=== PATIENT | female | born 1970 | race Caucasian/White ===

== ENCOUNTER 2017-12-07 15:14 | Emergency (ER) | payer MEDICAID ==
[2017-12-07] MEDS ORDERED: DIAZEPAM 5 MG TAB PO ONE (16:28)
--- NOTE | 2017-12-07 16:29 | EDPHY ---
H & P Time Seen by Provider: 12/07/17 16:10 HPI/ROS: HPI Anxiety, rash. 47-year-old female reportedly by private vehicle. She reports states that she has a long history of anxiety. She reports that she has been out of her anxiety medications for 4-5 months. She reports that [facility] emergency department on December 06. She reports that 1 of these facilities called in a prescription for hydralazine to either [facility] and or [facility]. She has not filled this because she initially told me that she did have a car. She then stated however that she drove her boyfriend to work prior to coming here. When I questioned her on that she stated that she did have a car but got lost and wound up at the emergency department. She also complains of a rash which she has had for several days. She is concerned this may be scabies. She had this evaluated at the urgent care [facility] emergency department as well. This why she was prescribed hydralazine. She describes it as itchy. She also reports some irritation to her right eye without trauma or changes in vision. She does not wear contact lenses. ROS: Constitutional: No fever, no chills. As above. Eyes: As above. No changes in vision. ENT: No sore throat. No nasal congestion or rhinorrhea. Respiratory: No cough. No shortness of breath. Cardiac: No chest pain, no palpitations. Gastrointestinal: No abdominal pain, no vomiting, no diarrhea. Genitourinary: No hematuria. No dysuria or increased frequency with urination. Musculoskeletal: No back pain. No neck pain. No myalgias or arthralgias. Skin: As above. Neurological: No headache. No focal weakness or altered sensation. Past medical history: Anxiety, depression. Hysterectomy. Social history: Currently here by herself. States she has a boyfriend. Smoker. Denies alcohol. Denies IV drugs and street drugs. Physical Exam: General Appearance: Alert, anxious but not in distress. Dirty, disheveled. This patient is responding to questions appropriately and in full sentences. This patient appears well-hydrated and well-nourished. Eyes: Pupils equal and round and reactive to light. Right eye significant for some vague erythema and mild lid edema with some purulent crusting at the medial canthus. No foreign body on gross inspection. The cornea appears grossly normal. She does not have significant tearing or ocular pain. Left is normal on gross inspection. Neurological: Motor sensory function is grossly intact. Cranial nerves are normal. Gait is normal. Skin: Warm and dry, diffuse, urticarial erythematous blanching type rash on anterior chest, lower face and arms. No track castelan to suggest scabies. No petechiae. Looks like it has a sunburn component to it as well. Musculoskeletal: Neck is supple and nontender. Extremities are symmetrical. All joints range without pain or impingement. Psychiatric: No agitation. No depression. Database: EKG: Imaging: Procedures: Emergency department course: Triage vital signs reviewed. Because the patient is driving I will not medicate her for anxiety was sedative medications. She was given 60 mg of oral prednisone for her rash. She was started on Polytrim ophthalmic for her right eye conjunctivitis. I had our top case assembler see her, case management has arrange for follow-up with [facility] to further evaluate and treat her anxiety on a long-term basis. The patient feels comfortable going home and I feel she is safe for discharge. She understands for follow-up. I have discussed medication dosing with her. Return to emergency department precautions reviewed. All of her questions were answered. She was discharged in good condition. Note: nursing staff verified prescribed medications from visit to [facility] emergency department yesterday. Patient prescribed permethrin for possible scabies as well as erythromycin ophthalmic ointment for conjunctivitis and hydralazine. Patient given filled prescription for polytrim ophthalmic here in our emergency department. Prescriptions transferred to local pharmacy in [place] these will be filled except for the erythromycin ophthalmic ointment which is been replaced by polytrim ophthalmic as noted. Differential Diagnosis: The differential diagnosis on this patient includes but is not limited to right eye conjunctivitis, anxiety, erythematous urticarial rash. Scabies, corneal abrasions/ulceration, ocular foreign body, suicidal ideation unlikely. This represents a partial list of diagnoses considered. These considerations are based on history, physical exam, past history, reassessment and diagnostic testing. Smoking Status: Former smoker Constitutional: Initial Vital Signs Temperature (C) 36.5 C 12/07/17 15:31 Heart Rate 96 12/07/17 15:31 Respiratory Rate 24 H 12/07/17 15:31 Blood Pressure 171/98 H 12/07/17 15:31 O2 Sat (%) 99 12/07/17 15:31 O2 Delivery Mode Room Air Allergies/Adverse Reactions: No Known Allergies Allergy (Unverified 12/07/17 15:39) Home Medications: Medication Instructions Recorded predniSONE [prednisone 20mg (RX)] 60 mg PO DAILY #9 tab 12/07/17 Medical Decision Making - Data Points Medications Given: Discontinued Medications Diazepam (Valium) 10 mg PO EDNOW ONE Stop: 12/07/17 16:29 Last Admin: 12/07/17 16:51 Dose: Not Given Polymyxin/Trimethoprim Sulfate (Polytrim Opht Drops) 1 drops RTEYE Q6HRS KARIE Stop: 01/06/18 17:59 Last Admin: 12/07/17 17:00 Dose: 1 btl Prednisone (Prednisone) 60 mg PO EDNOW ONE Stop: 12/07/17 16:42 Last Admin: 12/07/17 16:56 Dose: 60 mg Departure - Departure Disposition: Home, Routine, Self-Care Clinical Impression: Anxiety, Conjunctivitis, Rash Condition: Good Instructions: Acute Rash (ED), Anxiety (ED), Conjunctivitis (ED) Additional Instructions: Read and follow provided instructions. Follow-up with your primary care physician at [facility] for re-evaluation of your rash and your right eye conjunctivitis early next week, also follow-up with [facility] for treatment of your anxiety as instructed by case management. Take medication as prescribed. Polytrim ophthalmic drops: 1 drop every 3-4 hours while awake for 5 days. Return to the emergency department for worsening symptoms or other serious concerns. Referrals: [facility],. [Clinic] - As per Instructions [facility] [Clinic] - As per Instructions Prescriptions: predniSONE [prednisone 20mg (RX)] 60 mg PO DAILY #9 tab
[2017-12-07] MEDS: predniSONE 20 MG TAB PO ONE ×2 (16:43→16:56)
[2017-12-07] MEDS: POLYMYXIN B SULFATE/TMP 10 ML OPHT.BTL RTEYE SCH ×2 (16:57→17:00)
[2017-12-07 17:42] VITALS: BP 119/58
--- NOTE | 2017-12-07 17:55 | ASDISCHSUM ---
Discharge Information Plan Status:Home with No Needs Medically Cleared to Leave: Discharge Date:12/07/2017 05:40 PM CM D/C Disposition:Home, Routine, Self-Care ADT D/C Disposition:Home, Routine, Self-Care Projected Discharge Date:12/07/2017 05:40 PM Transportation at D/C:Self Discharge Delay Reason: Follow-Up Date:12/07/2017 05:40 PM Discharge Slot: Final Diagnosis: Placement Information Patient Contact Information Contact Name:LEYDI Relationship:Daughter Address: Work Phone: City: [facility] Phone: State/Zip Code: Email: Financial Information Financial Class:Medicaid Primary Plan Desc:MEDICAID HEALTH FIRST BODY STYLIST Primary Plan Number:[id number] Secondary Plan Desc: Secondary Plan Number: Assessment Information [facility] CM Progress Note CM Note CM Note Notes: Pt presented to the ED through triage for anxiety, rash, and an eye infection. Pt had reported she was seen at an Urgent Care in [facility] ED in the last few days and was prescribed various meds for her eye infection and anxiety but pt was unable to fill prescriptions due to not having transportation last night, etc (various social reasons r/t transport, not being able to contact her boyfriend, leaving her ID at a hotel, getting lost while driving to [place], etc.). Spoke with patient and she states the Rxns were called into [facility] in [place]. This CM called [place] and confirmed pt's 5 prescriptions were ready for clam picker. This CM offered to assist with getting Rxns transferred to a [facility] in [place] but pt sates she will pick them up in [place]. Pt states she drove her boyfriend to work today and he is on a bus to meet up with her and drive back to [place] or [place]. It was unclear whether patient is living in [place] or [place]; pt states she still providers her parents address as her own but she got in an argument with her father and was kicked out so technically she is homeless. Pt provided information on [facility] and their Walk-In Crisis Center. Pt states she has already been set up with a therapist (appt is on 12/16/17) through [facility] ([phone]) in [facility]. This CM offered to print out resources including their crisis services and walk-in locations but patient states she already has the information. Pt to DC independently and to follow up with either [facility] or [facility]. CM available for further assistance if needed. Date Signed: 12/07/2017 05:54 PM Electronically Signed By:Yecenia Chen RN Intervention Information Intervention Type:Community Resources Date of Service:12/07/2017 05:54 PM Patient Type:Emergency Room Staff Member:RAHEEM Chen, Yecenia Hours:0.5 Discipline:Quality Control Supervisor Severity: Comment:
== END 2017-12-07 17:40 | disposition home or self-care (01) ==
DX: F41.9 Anxiety disorder, unspecified (principal); R21 Rash and other nonspecific skin eruption; H10.9 Unspecified conjunctivitis; Z87.891 Personal history of nicotine dependence
CPT/HCPCS: J7512